=== PATIENT | female | born 1975 | race Caucasian/White ===

== ENCOUNTER 2017-02-10 16:25 | Emergency (ER) | payer BC ==
[~2017-02-10] VITALS: Ht 157.5 cm; Wt 162.3 kg
[~2017-02-10 16:25] MED LIST: BENTYL20 MG PO; CRYSELLE1 EACH PO; CYCLOBENZAPRINE10 MG PO; LEVOFLOXACIN500 MG PO; LO-OVRAL-281 EACH PO; LORTAB 5-325 M1 EACH PO; METFORMIN HCL500 MG PO; NAPROSYN500 MG PO; NORCO 5/3251 TABLET PO; OXYBUTYNIN CHLO10 MG PO; SILVADENE20 GM TP; VALIUM5 MG PO; VICODIN 5-5001 EACH PO
[2017-02-10] MEDS ORDERED: METFORMIN HCL1000 MG PO (16:54)
[2017-02-10] MEDS ORDERED: CAMILA0.35 MG PO (16:55)
[2017-02-10 18:10] LABS: HEMATOCRIT 41.4 % (36.0-46.0); MCH 30.6 PG (29.0-34.0); MCHC 34.3 G/DL (30.0-36.0); MCV 89.2 FL (83-99); MEAN PLAT.VOLUME 9.3 uM^3 (9.5-12.4); PLATELET COUNT 268 K/uL (156-360); RBC DIS.WIDTH-CV 13.2 % (11.8-14.6); RBC DIS.WIDTH-SD 43.4 % (39-53); RED BLOOD COUNT 4.64 M/uL (3.80-5.20); WHITE BLOOD COUNT 11.6 K/uL (4.1-10.2)
[2017-02-10 18:19] LABS: ADD MIUA? YES; BILIRUBIN NEGATIVE; BLOOD MODERATE; COLOR YELLOW ((YELLOW)); GLUCOSE (STRIP) NEGATIVE; KETONES NEGATIVE; LEUKOCYTES LARGE; NITRITE NEGATIVE; PROTEIN (STRIP) 30; SPECIFIC GRAVITY 1.011 (1.000-1.030); UROBILINOGEN 0.2 MG/DL (0.2-1.0)
[2017-02-10 18:28] LABS: CHLORIDE 103 mEq/L (99-109); POTASSIUM 3.8 mEq/L (3.7-5.4); SODIUM 136 mEq/L (136-147)
[2017-02-10 18:30] LABS: GLUCOSE 124 mg/dL (70-99)
[2017-02-10 18:31] LABS: ANION GAP 11 MEQ/L (2-14)
[2017-02-10 18:32] LABS: TOTAL BILIRUBIN 0.5 mg/dL (0.0-1.0)
[2017-02-10 18:34] LABS: ALKALINE PHOSPHATASE 61 IU/L (3-129); GFR ESTIMATE (CALCULATED) > 59 mL/min/
[2017-02-10 18:35] LABS: UREA NITROGEN (BUN) 11 mg/dL (9-23)
[2017-02-10 18:37] LABS: LIPASE 28 U/L (1.0-51.0)
[2017-02-10 18:43] LABS: QUANTITATIVE HCG < 4.0 MIU/ML
[2017-02-10] MEDS ORDERED: KEFLEX500 MG PO (19:21)
[2017-02-10 19:26] LABS: CASTS NONE SEEN /LPF; EPITHELIAL CELLS 2+ /HPF; MUCUS NONE SEEN /LPF
[2017-02-10 19:27] LABS: BACTERIA 1+ /HPF; RED BLOOD CELLS RARE /HPF (0-5); UCUL ADDED? YES; WHITE BLOOD CELLS TNTC /HPF (0-5)
[2017-02-10] MEDS ORDERED: PYRIDIUM200 MG PO (19:32)
[2017-02-10 19:59] VITALS: BP 132/88
== END 2017-02-10 20:00 | disposition home or self-care (01) ==
LOC: EME 16:25
PROVIDERS: Physician Assistant Medical
DX: N30.90 Cystitis, unspecified without hematuria (principal); E11.9 Type 2 diabetes mellitus without complications; Z79.84 Long term (current) use of oral hypoglycemic drugs; F17.200 Nicotine dependence, unspecified, uncomplicated
CPT/HCPCS: 80053; 81003; 83690; 84702; 85027; 87077; 87086; 87186; 99281; 99284